=== PATIENT | male | born 1950 | race Caucasian/White ===

== ENCOUNTER 2022-03-29 14:41 | Emergency (ER) | payer MEDICARE, SELFPAY ==
[2022-03-29 14:55] VITALS: BP 124/67; PULSE 88; RESP 16; TEMP 36.1; O2SAT 100
--- NOTE | 2022-03-29 16:02 | ED.GENADULT ---
HPI - General Adult General Chief complaint: Extremity Problem,Nontraumatic Stated complaint: Blister on foot Time Seen by Provider: 03/29/22 15:06 History of Present Illness HPI narrative: Patient is a 71-year-old male who presents ER with concerns about a wound to his right foot. Reports he has been using a foot vibrator and thinks he created a blister on the bottom of his foot. He noticed wound today while cleaning his feet in the shower. There is no redness of the foot or swelling. No fevers or chills or sweats. Related Data Allergies Allergy/AdvReac Type Severity Reaction Status Date / Time No Known Allergies Allergy Verified 03/29/22 14:58 Review of Systems Review of Systems: All systems reviewed & are unremarkable except as noted in HPI and below Constitutional: Constitutional: Denies chills, Denies fatigue and Denies fever(s) Integumentary/Breasts: Skin/Breast: Reports erythema, Denies rash and Reports skin ulcer Neurologic: Denies numbness and Denies weakness PMFSH Past Medical History Medical History (Updated 03/29/22 @ 16:11 by Denzel Church MD) Diabetes Surgical History Surgical History (Updated 03/29/22 @ 16:11 by Denzel Church MD) No pertinent past surgical history Family History Family History (Updated 07/28/18 @ 12:44 by DOCTOR UNKNOWN) Other Diabetes mellitus Family history of coronary artery disease Family history of lung cancer Family history of malignant neoplasm of brain Exam Narrative: GENERAL: Well-appearing, well-nourished, and in no acute distress. HEAD: Normocephalic, atraumatic. CHEST: Clear to auscultation. No respiratory distress. HEART: Regular rate and rhythm. Normal peripheral pulses. EXTREMITIES: Normal range of motion. 1+ edema. SKIN: Warm, dry. There is a area of skin consistent with ruptured blister on the plantar aspect of the right foot measuring 4 cm x 2 cm. No deep ulceration. No cellulitis or drainage. NEURO: Alert and oriented x3. PSYCH: Normal mood and affect. Course Course Emergency Course: Discussed wound care. Will place on prophylactic antibiotics. Vital Signs Vital signs: Vital Signs Temperature 97.0 F L 03/29/22 14:55 Pulse Rate 88 03/29/22 14:55 Respiratory Rate 16 03/29/22 14:55 Blood Pressure 124/67 03/29/22 14:55 Pulse Oximetry 100 03/29/22 14:55 Oxygen Delivery Room Air 03/29/22 14:55 Temperature 97.0 F L 03/29/22 14:55 Pulse Rate 88 03/29/22 14:55 Respiratory Rate 16 03/29/22 14:55 Blood Pressure 124/67 03/29/22 14:55 Pulse Oximetry 100 03/29/22 14:55 Oxygen Delivery Room Air 03/29/22 14:55 Medical Decision Making Vital Signs Vital Signs: Vital Signs Temperature 97.0 F L 03/29/22 14:55 Pulse Rate 88 03/29/22 14:55 Respiratory Rate 16 03/29/22 14:55 Blood Pressure 124/67 03/29/22 14:55 Pulse Oximetry 100 03/29/22 14:55 Oxygen Delivery Room Air 03/29/22 14:55 Temperature 97.0 F L 03/29/22 14:55 Pulse Rate 88 03/29/22 14:55 Respiratory Rate 16 03/29/22 14:55 Blood Pressure 124/67 03/29/22 14:55 Pulse Oximetry 100 03/29/22 14:55 Oxygen Delivery Room Air 03/29/22 14:55 Discharge Plan Discharge Clinical Impression: Blister of foot Patient Disposition: Home, Self-Care Condition: Stable Instructions: Antibiotic Form, Blister (ED) Additional Instructions: You are being placed on prophylactic antibiotics to hopefully prevent secondary infection to your foot wound. Continue to monitor your wound daily. Return if your leg is red/hot/swollen, you have fever over 100.4 ?F, you have additional concerns. Prescriptions: New cephalexin 500 mg capsule 500 mg PO Q12H Qty: 10 0RF Follow-up/Referrals: José Kim MD [Physician] - 1 Week PHYSICIAN,[employer] [Primary Care Provider] -
--- NOTE | 2022-03-29 16:25 | PC.NURSE ---
Wound dressed with Telfa and coban.
== END 2022-03-29 16:42 | disposition home or self-care (01) ==
PROVIDERS: Emergency Provider Emergency Medicine
DX: S90.821A Blister (nonthermal), right foot, initial encounter (principal); X58.XXXA Exposure to other specified factors, initial encounter
CPT/HCPCS: 99283